=== PATIENT | female | born 1960 | race American Indian/Alaskan Native ===

== ENCOUNTER 2016-06-15 06:24 | Day surgery (SDC) | payer BC ==
[~2016-06-15 06:24] MED LIST: Lactated Ringers 1,000 ML IV SCH; Lidocaine 1%/Sod Bicarbonate in NS 8.4% 1 ML Syringe IV PRN; Sodium Chloride 0.9% 10 ML Syringe FLUSH PRN
[2016-06-15] MEDS ORDERED: Lidocaine 1% 50 ML MDV ONE (06:47)
[2016-06-15] MEDS ORDERED: Bupivacaine 0.25% 30 ML SDV ONE (06:47)
[2016-06-15 08:14] VITALS: BP 105/89
--- NOTE | 2016-06-26 22:42 | PCM.OPNOTE ---
- General Post-Op/Procedure Note Date of Surgery/Procedure: 06/15/16 Operative Procedure(s): right carpal tunnel release Pre Op Diagnosis: right median nerve compression neuropathy Post-Op Diagnosis: Same Anesthesia Technique: Local Primary Surgeon: Lucius Callaway Cutter Operator: Sandra He in mLs: 5 Complications: None Condition: Good
--- NOTE | 2016-06-27 06:50 | OR ---
DATE OF OPERATION: 06/15/2016 SURGEON: Lucius Callaway MD OPERATION PERFORMED: Right carpal tunnel release. PREOPERATIVE DIAGNOSIS: Right median nerve compression neuropathy. POSTOPERATIVE DIAGNOSIS: Right median nerve compression neuropathy. ANESTHESIA: Local. ANESTHESIA: None. ASSOCIATE DIRECTOR QA: Elaine He PA-C. ESTIMATED BLOOD LOSS: Less than 5 mL. COMPLICATIONS: None. CONDITION: Stable. DESCRIPTION OF PROCEDURE: The patient was identified in the preop holding area. Proper site was marked and identified by the surgeon. The patient was taken back to the operating theater, where after adequate anesthesia, the patient's right upper extremity had a nonsterile tourniquet applied and it was then sterilely prepped and draped in usual sterile fashion. OR time-out was performed. The patient did not receive any antibiotics as is not indicated for soft tissue and procedure at this time. Esmarch was used to the right upper extremity, was used as a tourniquet at the mid forearm, 1% lidocaine without epinephrine and 25% Marcaine were then injected near the palmar cutaneous branch of the median nerve 10 cm proximal to the wrist crease as well as over the incisional area. At this time, an incision was then made using Parisi cardinal line in the ulnar border of the fourth digit. This was taken down the palmar cutaneous fascia. Palmar cutaneous fascia was then incised. The transverse carpal ligament was identified. A small rent was made in the transverse carpal ligament and a [place] elevator was placed distally. The [place] blade was then used for release of the transverse carpal ligament distally all the way to the palmar arch making sure to stop short of palmar fat. Once it was found to be adequately released, tension was turned proximally. A tenotomy scissors was then used for release proximally and making sure to keep the tips to protect the palmar cutaneous branch of the median nerve. At this time, it was found to be released both proximally and distally. Adequate saline was then irrigated through the wound. A 4-0 nylon and simple suture was used for closure of the skin. The patient tolerated the procedure well and sent to PACU in stable condition. MMODAL /[id number]
== END 2016-06-15 07:50 | disposition home or self-care (01) ==
LOC: JD.SDS 06:24
PROVIDERS: ATTEND Orthopaedic Surgery
DX: G56.11 Other lesions of median nerve, right upper limb (principal); E03.9 Hypothyroidism, unspecified; Z98.890 Other specified postprocedural states; Z87.891 Personal history of nicotine dependence
CPT/HCPCS: J3490

== ENCOUNTER 2017-02-15 06:27 | Day surgery (SDC) | payer BC ==
[~2017-02-15 06:27] MED LIST changes: -Lidocaine 1%/Sod Bicarbonate in NS 8.4% 1 ML Syringe IV PRN; +Lidocaine 1%/Sod Bicarbonate in NS 8.4% 1 ML Syringe PRN
[2017-02-15] MEDS ORDERED: Bupivacaine 0.25% 30 ML SDV ONE (07:01)
[2017-02-15] MEDS ORDERED: Lidocaine 1% 50 ML MDV ONE (07:01)
[2017-02-15 08:04] VITALS: BP 117/75
--- NOTE | 2017-02-21 22:11 | PCM.OPNOTE ---
- General Post-Op/Procedure Note Date of Surgery/Procedure: 02/15/17 Operative Procedure(s): left carpal tunnel release Pre Op Diagnosis: left wrist median nerve compression neuropathy Post-Op Diagnosis: Same Anesthesia Technique: Local Primary Surgeon: Lucius Callaway Residential Case Manager: Sandra He in mLs: 5 Complications: None Condition: Good
--- NOTE | 2017-02-21 22:47 | OR ---
DATE OF OPERATION: 02/15/2017 SURGEON: Lucius Callaway MD OPERATION PERFORMED: Left carpal tunnel release. PREOPERATIVE DIAGNOSIS: Left median nerve compression neuropathy. POSTOPERATIVE DIAGNOSIS: Left median nerve compression neuropathy. ANESTHESIA: Local. HOSPICE CASE MANAGER: Sandra He PA-C. ESTIMATED BLOOD LOSS: Less than 5 mL. COMPLICATIONS: None. CONDITION: Stable. DESCRIPTION OF PROCEDURE: The patient was identified in the preoperative holding area. Proper site was marked and identified by the surgeon. The patient was taken back to the operative theater, and the left upper extremity was sterilely prepped and draped in the usual sterile fashion. OR time-out was performed. Antibiotics were not indicated for soft tissue hand procedure. At this time, with the use of 1% lidocaine without epinephrine and 0.25% Marcaine without epinephrine, the palmar cutaneous branch of the median nerve was anesthetized roughly 10 cm proximal to the palmar wrist crease. At this time, the incisional site was anesthetized at the ulnar border of the fourth digit in the Parisi cardinal line. At this time, once it was adequately anesthetized, an incision was made. Blunt dissection was taken down the palmar cutaneous fascia. The palmar cutaneous fascia was incised with the use of [place] blade. The transverse carpal ligament was identified, and a small rent was made in the transverse carpal ligament. A [place] elevator was placed under the transverse carpal ligament, and this was then released all the way distally to just short of the palmar arch. It was found to be adequately released. Attention was turned proximally. At this time, the superficial forearm fascia as well as the transverse carpal ligament were then released proximally with the use of a tenotomy scissors keeping the tips ulnar to protect the palmar cutaneous branch of the median nerve. At this time, it was found to be adequately released, both proximally and distally. Adequate saline was then irrigated through the wound. 4-0 nylon horizontal mattress sutures were used for closure of the skin. The patient had a sterile soft dressing applied and sent to the PACU in stable condition. MMODAL /[id number]
== END 2017-02-15 08:01 | disposition home or self-care (01) ==
LOC: JD.SDS 06:27
PROVIDERS: ATTEND Orthopaedic Surgery
DX: G56.02 Carpal tunnel syndrome, left upper limb (principal); E03.9 Hypothyroidism, unspecified; Z90.710 Acquired absence of both cervix and uterus
CPT/HCPCS: 64721; 87641; J3490

== ENCOUNTER 2019-06-05 08:04 | Day surgery (SDC) | payer BC ==
[~2019-06-05 08:04] MED LIST changes: +Lidocaine 1%/Sod Bicarbonate in NS 8.4% 1 ML Syringe IDERM PRN; -Lidocaine 1%/Sod Bicarbonate in NS 8.4% 1 ML Syringe PRN
[2019-06-05] MEDS ORDERED: Propofol 200 MG/20 ML SDV ONE ×2 (08:17→09:44)
[2019-06-05] MEDS ORDERED: Midazolam 1 MG/ML 2 ML SDV ONE (08:17)
[2019-06-05] MEDS ORDERED: fentaNYL 100 MCG/2 ML SDV ONE (08:17)
[2019-06-05] MEDS ORDERED: Lidocaine 1% 4 ML ONE (08:17)
--- NOTE | 2019-06-05 08:52 | PCM.PREANE ---
Preanesthetic Assessment - Procedure Proposed Procedure: screening colonoscopuy - Anesthesia/Transfusion/Family Hx Anesthesia History: Prior Anesthesia Without Reaction Family History of Anesthesia Reaction: No Transfusion History: No Prior Transfusion(s) - Review of Systems General: No Symptoms Pulmonary: No Symptoms Cardiovascular: No Symptoms Gastrointestinal: No Symptoms Neurological: No Symptoms Other: Reports: Thyroid Problems (nodules), Sinus Problem - Physical Assessment NPO Status Date: 06/05/19 NPO Status Time: 04:00 Vital Signs: 119/77 70 98% 16 96.8 Height: 5 ft 4 in Weight: 59.783 kg ASA Class: 2 Mental Status: Alert & Oriented x3 Airway Class: Mallampati = 1 Dentition: Reports: Normal Dentition Thyro-Mental Finger Breadths: 3 Mouth Opening Finger Breadths: 3 ROM/Head Extension: Full Lungs: Clear to Auscultation, Normal Respiratory Effort Cardiovascular: Regular Rate, Regular Rhythm - Allergies Allergies/Adverse Reactions: Allergies Allergy/AdvReac Type Severity Reaction Status Date / Time No Known Allergies Allergy Verified 06/04/19 16:16 - Blood Blood Available: No - Acknowledgements Anesthesia Type Planned: MAC Pt an Appropriate Candidate for the Planned Anesthesia: Yes Alternatives and Risks of Anesthesia Discussed w Pt/Guardian: Yes Pt/Guardian Understands and Agrees with Anesthesia Plan: Yes PreAnesthesia Questionnaire HEENT History: Reports: Other (See Below) Other HEENT History: dysphagia, eustachian tube dysfunction, right otitis media Cardiovascular History: Reports: None Respiratory History: Reports: None Gastrointestinal History: Reports: Colon Polyp, Other (See Below) Other Gastrointestinal History: tubular adenoma Genitourinary History: Reports: None SPANISH INTERPRETER History: Reports: Hyperemesis Musculoskeletal History: Reports: None Neurological History: Reports: None Psychiatric History: Reports: None Endocrine/Metabolic History: Reports: Hypothyroidism, Other (See Below) Other Endocrine/Metabolic History: thyroid nodules Hematologic History: Reports: None Immunologic History: Reports: None Oncologic (Cancer) History: Reports: None Dermatologic History: Reports: None - Past Surgical History Head Surgeries/Procedures: Reports: None HEENT Surgical History: Reports: None Cardiovascular Surgical History: Reports: None Respiratory Surgical History: Reports: None GI Surgical History: Reports: Appendectomy, Colon, Colonoscopy Female Surgical History: Reports: Breast Implant, Section, Hysterectomy Other Female Surgeries/Procedures: breast lumpectomy, , tubal, hysterectomy Male Surgical History: Reports: None Endocrine Surgical History: Reports: None Neurological Surgical History: Reports: None Musculoskeletal Surgical History: Other Musculoskeletal Surgeries/Procedures:: Ankle sugery. Oncologic Surgical History: Reports: None Dermatological Surgical History: Reports: None - SUBSTANCE USE Smoking Status *Q: Former Smoker Second Hand Smoke Exposure: No Days Per Week of Alcohol Use: 1 Recreational Drug Use History: No - HOME MEDS Home Medications: Home Meds Lactobacillus Combination No.4 [Probiotic] 1 cap PO DAILY 06/04/19 [History] - CURRENT (IN HOUSE) MEDS Current Meds: Current Medications Lactated Ringer's (Ringers, Lactated) 1,000 mls @ 125 mls/hr IV ASDIRECTED [facility] Stop: 06/05/19 23:00 Lidocaine/Sodium Bicarbonate (Buffered Lidocaine 1% In Ns 8.4%) 0.25 ml IDERM ONETIME PRN PRN Reason: Prior to IV Start Stop: 06/05/19 18:00 Sodium Chloride (Saline Flush) 10 ml FLUSH ASDIRECTED PRN PRN Reason: Keep Vein Open Stop: 06/05/19 18:00 Discontinued Medications Fentanyl (Sublimaze) Confirm Administered Dose 100 mcg .ROUTE .STK-MED ONE Stop: 06/05/19 08:18 Lactated Ringer's (Ringers, Lactated) 1,000 mls @ 125 mls/hr IV ASDIRECTED [facility] Stop: 06/04/19 23:00 Lidocaine HCl (Xylocaine-Mpf 1%) Confirm Administered Dose 4 mls @ as directed .ROUTE .STK-MED ONE Stop: 06/05/19 08:18 Lidocaine/Sodium Bicarbonate (Buffered Lidocaine 1% In Ns 8.4%) 0.25 ml IDERM ONETIME PRN PRN Reason: Prior to IV Start Midazolam HCl (Versed 1 Mg/Ml) Confirm Administered Dose 2 mg .ROUTE .STK-MED ONE Stop: 06/05/19 08:18 Propofol (Diprivan 20 Ml) Confirm Administered Dose 200 mg .ROUTE .STK-MED ONE Stop: 06/05/19 08:18 Sodium Chloride (Saline Flush) 10 ml FLUSH ASDIRECTED PRN PRN Reason: Keep Vein Open
--- NOTE | 2019-06-05 09:06 | PCM.HP.2 ---
H&P History of Present Illness - General Date of Service: 06/05/19 Admit Problem/Dx: due for screening colonoscopy Source of Information: Patient History Limitations: Reports: No Limitations - History of Present Illness Initial Comments - Free Text/Narative: Please refer to clinic note in [employer] for detailed HPI; no changes in medical history since that note. - Related Data Allergies/Adverse Reactions: Allergies Allergy/AdvReac Type Severity Reaction Status Date / Time No Known Allergies Allergy Verified 06/04/19 16:16 Home Medications: Home Meds Lactobacillus Combination No.4 [Probiotic] 1 cap PO DAILY 06/04/19 [History] Past Medical History HEENT History: Reports: Other (See Below) Other HEENT History: dysphagia, eustachian tube dysfunction, right otitis media Cardiovascular History: Reports: None Respiratory History: Reports: None Gastrointestinal History: Reports: Colon Polyp, Other (See Below) Other Gastrointestinal History: tubular adenoma Genitourinary History: Reports: None PARTS CONTROL CLERK History: Reports: Hyperemesis Musculoskeletal History: Reports: None Neurological History: Reports: None Psychiatric History: Reports: None Endocrine/Metabolic History: Reports: Hypothyroidism, Other (See Below) Other Endocrine/Metabolic History: thyroid nodules Hematologic History: Reports: None Immunologic History: Reports: None Oncologic (Cancer) History: Reports: None Dermatologic History: Reports: None - Past Surgical History Head Surgeries/Procedures: Reports: None HEENT Surgical History: Reports: None Cardiovascular Surgical History: Reports: None Respiratory Surgical History: Reports: None GI Surgical History: Reports: Appendectomy, Colon, Colonoscopy Female Surgical History: Reports: Breast Implant, Section, Hysterectomy Other Female Surgeries/Procedures: breast lumpectomy, , tubal, hysterectomy Male Surgical History: Reports: None Endocrine Surgical History: Reports: None Neurological Surgical History: Reports: None Musculoskeletal Surgical History: Other Musculoskeletal Surgeries/Procedures:: Ankle sugery. Oncologic Surgical History: Reports: None Dermatological Surgical History: Reports: None Social & Family History - Tobacco Use Smoking Status *Q: Former Smoker Second Hand Smoke Exposure: No - Caffeine Use Caffeine Use: Reports: Coffee - Alcohol Use Days Per Week of Alcohol Use: 1 - Recreational Drug Use Recreational Drug Use: No Drug Use in Last 12 Months: No H&P Review of Systems - Review of Systems: Review Of Systems: See Below General: Reports: No Symptoms HEENT: Reports: No Symptoms Pulmonary: Reports: No Symptoms Cardiovascular: Reports: No Symptoms Gastrointestinal: Reports: No Symptoms Genitourinary: Reports: No Symptoms Musculoskeletal: Reports: No Symptoms Skin: Reports: No Symptoms Psychiatric: Reports: No Symptoms Neurological: Reports: No Symptoms Hematologic/Lymphatic: Reports: No Symptoms Immunologic: Reports: No Symptoms Exam - Exam Exam: See Below - Vital Signs Weight: 59.783 kg - Exam General: Alert, Oriented, Cooperative HEENT: Conjunctiva Clear Neck: Supple Lungs: Clear to Auscultation Cardiovascular: Regular Rate GI/Abdominal Exam: Soft, Non-Tender (Female) Exam: Deferred Rectal (Female) Exam: Deferred Back Exam: Normal Inspection Extremities: Normal Inspection Skin: Warm, Dry Neuro Extensive - Mental Status: Alert, Oriented x3 Neuro Extensive - Motor, Sensory, Reflexes: Normal Gait Psychiatric: Alert, Normal Affect *Q Meaningful Use (ADM) - VTE Risk Assess *Q Each Risk Factor Represents 2 Points: Age 60 - 74 Years Total Score 2 Point Risk Factors: 2 Problem List Initiated/Reviewed/Updated: Yes Orders Last 24hrs: Active Orders 24 hr Category Date Time Status Peripheral IV Care [RC] . DIRECTED Care 06/05/19 00:01 Active Verify Patient Consent Obtain [RC] ASDIRECTED Care 06/05/19 00:01 Active Lactated Ringers [Ringers, Lactated] 1,000 ml Med 06/05/19 00:01 Active IV ASDIRECTED Lidocaine 1%/Sod Bicarbonate [Buffered Lidocaine 1% in Med 06/05/19 00:01 Active NS 8.4%] 0.25 ml IDERM ONETIME PRN Sodium Chloride 0.9% [Saline Flush] Med 06/05/19 00:01 Active 10 ml FLUSH ASDIRECTED PRN Medication Administration Instruction [OM.PC] Routine Oth 06/05/19 00:01 Ordered Peripheral IV Insertion Adult [OM.PC] Routine Oth 06/05/19 00:01 Ordered Medication Orders Lactated Ringer's (Ringers, Lactated) 1,000 mls @ 125 mls/hr IV ASDIRECTED [facility] Stop: 06/05/19 23:00 Lidocaine/Sodium Bicarbonate (Buffered Lidocaine 1% In Ns 8.4%) 0.25 ml IDERM ONETIME PRN PRN Reason: Prior to IV Start Stop: 06/05/19 18:00 Sodium Chloride (Saline Flush) 10 ml FLUSH ASDIRECTED PRN PRN Reason: Keep Vein Open Stop: 06/05/19 18:00 Assessment/Plan Comment:: Colonoscopy today. - Mortality Measure Prognosis:: Good
--- NOTE | 2019-06-05 10:18 | PCM48HPAN ---
Post Anesthesia Note - EVALUATION WITHIN 48HRS OF ANESTHETIC Vital Signs in Normal Range: Yes Patient Participated in Evaluation: Yes Respiratory Function Stable: Yes Airway Patent: Yes Cardiovascular Function Stable: Yes Hydration Status Stable: Yes Pain Control Satisfactory: Yes Nausea and Vomiting Control Satisfactory: Yes Mental Status Recovered: Yes Vital Signs: Last Vital Signs Temp 36.0 C L 06/05/19 08:20 Pulse 70 06/05/19 08:20 Resp 16 06/05/19 08:20 BP 119/77 06/05/19 08:20 Pulse Ox 98 06/05/19 08:20
--- NOTE | 2019-06-05 10:20 | PCM.PRNOTE ---
- Free Text/Narrative Note: Date: 06/05/2019 Procedure: screening colonoscopy Endoscopist: Brando Nassar MD Findings: Ileocecal valve visualized. Prep was good. Small ascending colon polyp , small pedunculated distal rectal polyp and larger, 1.5 cm polyp just proximal to the start of the anorectal complex. Mild diverticular disease. Detailed Report: The patient was taken to the endoscopy suite and placed in left lateral decubitus position. Time out was performed and monitored anesthesia care was initiated. The anus appeared normal. Digital rectal exam was unremarkable except for palpable hypertrophied anal papilla. The lubricated colonoscope was then inserted and advanced all the way to the cecum. The ileocecal valve was visualized. The prep was noted to be good. On slow withdrawal of the scope, mucosal surfaces were carefully inspected. A small sessile polyp in the ascending colon was biopsied with hot forceps and the base was then fulgurated. A few scattered diverticula in the sigmoid colon were noted. There were two polyps in the distal rectum, one small subcentimeter lesion biopsied with hot forceps with fulguration of the base, and piecemeal hot snare polypectomy of an approximately 1.5 cm lesion on the proximal shelf of the sphincter complex. The patient tolerated the procedure well. Brando Nassar MD General Surgery
[2019-06-05 10:21] VITALS: BP 99/69
[2019-06-05 10:33] VITALS: PULSE 74
[2019-06-05] MEDS ORDERED: ePHEDrine Sulfate/0.9% NaCl/Pf 25 MG/5 ML SYRINGE IV ONE (10:37)
== END 2019-06-05 11:10 | disposition home or self-care (01) ==
LOC: JD.SDS 08:04
PROVIDERS: ATTEND Surgery
DX: Z12.11 Encounter for screening for malignant neoplasm of colon (principal); D12.2 Benign neoplasm of ascending colon; D12.8 Benign neoplasm of rectum; K62.89 Other specified diseases of anus and rectum; K57.30 Diverticulosis of large intestine without perforation or abscess without bleeding; E03.9 Hypothyroidism, unspecified; Z87.891 Personal history of nicotine dependence; Z98.890 Other specified postprocedural states
CPT/HCPCS: 45384; 45385; J2001; J2250; J2704; J3010; J7120; 00812

== ENCOUNTER 2022-03-27 06:58 | Day surgery (SDC) | payer BC ==
[~2022-03-27 06:58] MED LIST changes: +Sodium Chloride 0.9% 10 ML Syringe FLUSH SCH
[2022-03-27] MEDS ORDERED: Propofol 200 MG/20 ML SDV ONE ×2 (07:42→07:46)
[2022-03-27] MEDS ORDERED: Lidocaine 1% 2 ML ONE (07:47)
[2022-03-27 14:13] VITALS: BP 119/75; PULSE 82
== END 2022-03-27 09:55 | disposition home or self-care (01) ==
LOC: JD.SDS 06:58
PROVIDERS: ATTEND Surgery
DX: Z12.11 Encounter for screening for malignant neoplasm of colon (principal); D12.8 Benign neoplasm of rectum; K63.9 Disease of intestine, unspecified; K57.30 Diverticulosis of large intestine without perforation or abscess without bleeding; I10 Essential (primary) hypertension; E04.2 Nontoxic multinodular goiter; Z79.899 Other long term (current) drug therapy; Z98.890 Other specified postprocedural states; Z90.49 Acquired absence of other specified parts of digestive tract; Z87.891 Personal history of nicotine dependence; Z80.0 Family history of malignant neoplasm of digestive organs
CPT/HCPCS: 45380; J2704; J7120; 00812

== ENCOUNTER → 2022-05-16 | Day surgery (SDC) | payer BC ==
[~2022-05-16] MED LIST changes: +Bupivacaine 0.5%/EPINEPHrine 1:200,000 50 ML MDV ONE; +HYDROmorphone 0.5 MG/0.5 ML Syringe IVPUSH PRN; +Lidocaine 1% 2 ML ONE; -Lidocaine 1%/Sod Bicarbonate in NS 8.4% 1 ML Syringe IDERM PRN; +Midazolam 1 MG/ML 2 ML SDV ONE; +Ondansetron 4 MG/2 ML SDV IVPUSH PRN; +Propofol 200 MG/20 ML SDV ONE; -Sodium Chloride 0.9% 10 ML Syringe FLUSH PRN; -Sodium Chloride 0.9% 10 ML Syringe FLUSH SCH; +fentaNYL 100 MCG/2 ML SDV IVPUSH PRN; +fentaNYL 100 MCG/2 ML SDV ONE
[2022-05-16 09:35] VITALS: BP 105/68; PULSE 86
== END | disposition home or self-care (01) ==
LOC: JD.SDS 07:07
PROVIDERS: ATTEND Surgery
DX: D12.9 Benign neoplasm of anus and anal canal (principal); I10 Essential (primary) hypertension; E78.5 Hyperlipidemia, unspecified; M79.10 Myalgia, unspecified site; E03.9 Hypothyroidism, unspecified; E04.2 Nontoxic multinodular goiter; Z79.899 Other long term (current) drug therapy; Z98.890 Other specified postprocedural states; Z87.891 Personal history of nicotine dependence
CPT/HCPCS: 45380; 45381; 88305; J2250; J2704; J3010; J3490; J7120